=== PATIENT | male | born 1980 | race African-American/Black ===

== ENCOUNTER 2023-06-04 08:41 | Outpatient (AMB) | payer OTHER, SELFPAY ==
[2023-06-04 08:52] VITALS: BP 152/102; PULSE 56; O2SAT 98; BMI 27.2
--- NOTE | 2023-06-04 08:52 | A.OFFPC_ITS ---
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 Transferring care from [facility] in [place]. Medical records have been requested today. 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 Accompanied by: Self / Same As Patient Allergies No Known Allergies Allergy (Verified 06/04/23 09:06) Medication List - Last Reconciled 06/04/23 by Zara Denton MD amlodipine 5 mg PO DAILY Tobacco use date assessed: 06/04/23 Dental Screening Dental Screen Date: 06/04/23 Did you have a dental visit in the last 12 months?: Yes Did you have a dental problem in the last 6 months where you did not have access to dental care?: No Was dental information given to patient?: Patient has dentist HPI HPI Comments History of Present Illness Details This is a 42-year-old male with stage I hypertension that comes to establish care. He said he had ambulatory blood pressure monitoring for a week and he has elevated blood pressure was at nighttime therefore amlodipine is taking at bedtime. He denies any chest pain or shortness of breath. Still has elevated blood pressure and will be recheck in 3 weeks by nurse navigator. Workup to rule out thyroid disease, pheochromocytoma, hyperaldosteronism and obstructive sleep apnea were ordered. 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 He is a former smoker and CBC was ordered to rule out polycythemia vera as a cause high blood pressure. He denies any headaches, confusion or palpitations. Feels fatigue occasionally. No chest pain or shortness of breath. Ibuprofen in the past cause decreasing GFR. [facility] Medical History (Updated 06/04/23 @ 09:21 by Zara Denton MD) Umbilical hernia Surgical History S/P umbilical hernia repair, follow-up exam Family History Mother Type II diabetes mellitus Rheumatoid arteritis Hypertension Father Type II diabetes mellitus History of open heart surgery Hypertension Social History (Updated 06/04/23 @ 09:11 by Zara Denton MD) Housing: Apartment Alcohol intake: former Patient Tobacco Use Status: Former Tobacco user Tobacco use type: Cigarette e-Cigarette/Vaping Use: Never Used service: No Current occupational status: employed Cognitive needs: No Hearing needs: No Vision needs: No Questionnaire PHQ-9 Over the last 2 weeks, how often have you been bothered by any of the following problems? 1. Little interest or pleasure in doing things: not at all 2. Feeling down, depressed, or hopeless: not at all 3. Trouble falling or staying asleep, or sleeping too much: not at all 4. Feeling tired or having little energy: not at all 5. Poor appetite or overeating: not at all 6. Feeling bad about yourself - or that you are a failure or have let yourself or your family down: not at all 7. Trouble concentrating on things, such as reading the newspaper or watching television: not at all 8. Moving or speaking so slowly that other people could have noticed. Or the opposite - being so fidgety or restless that you have been moving around a lot more than usual: not at all 9. Thoughts that you would be better off or of hurting yourself in some way: not at all Total score: 0 Depression Screening Interpretation: Negative 79788 - PHQ-9 Billing: Yes Source: Developed by Drs. Usman Carcamo, Ruma Saavedra, Billy Mustafa and colleagues, with an educational gerri from [employer]. Thrive Questionnaire Date Thrive assessed: 06/04/23 I am a: Patient What is your living situation today?: I have a steady place to live Within the past 12 months, did the food you bought not last and you didn't have the money to get more?: Never true Within the past 12 months, did you worry whether your food would run out before you got money to buy more?: Never true Do you have trouble paying for medicines?: No Do you have trouble getting transportation to medical appointments?: No Do you have trouble paying your heating and electricity bill?: No Do you have trouble taking care of your child, family member or friend?: No Do you have trouble with day-to-day activities such as bathing, preparing meals, shopping, managing finances, etc.?: No Are you currently unemployed and looking for a job?: No Are you interested in more education?: No Please select the resources that you would like help with: None Currently or been in a relationship where the following occur: no concerns reported AUDIT C Alcohol Use Questionnaire (AUDIT-C) 1. How often do you have a drink containing alcohol?: Never 3. How often do you have six or more drinks on one occasion?: Never Total Score: 0 Score Reviewed/Action Taken: No KRAIG-7 AMB Questionnaire KRAIG-7 Date KRAIG - 7 assessed: 06/04/23 Feeling nervous, anxious, or on edge: 0 = Not at all Not being able to stop or control worryin = Not at all Worrying too much about different things: 0 = Not at all Trouble relaxin = Not at all Being so restless that it is hard to sit still: 0 = Not at all Becoming easily annoyed or irritable: 0 = Not at all Feeling afraid as if something awful might happen: 0 = Not at all Total KRAIG-7 score (0-4 normal; 5-9 mild; 10-14 moderate; 15-21 severe): 0 Source: Developed by Drs. Usman Carcamo, Ruma Saavedra, Billy Mustafa and colleagues, with an educational gerri from [employer]. KRAIG-7 Assessment Billing KRAIG-7 Assessment Tool: KRAIG-7 Assessment 00174 Review of Systems Const All systems reviewed & are unremarkable except as noted in HPI and below Eyes Reports no additional complaints, Denies change in vision and Denies other visual disturbances Card Denies chest pain at rest, Denies chest pain with activity, Denies edema, Denies irregular heart rhythm, Denies claudication, Denies dyspnea, Denies dyspnea on exertion, Denies orthopnea, Denies paroxysmal nocturnal dyspnea and Denies slow heart rate Resp Denies cough, Denies dyspnea and Denies dyspnea on exertion GI Denies abdominal pain, Denies change in bowel habits, Denies excessive flatus, Denies nausea and Denies vomiting Denies urinary hesitancy, Denies urinary incontinence and Denies urinary urgency Musc Denies abnormal gait, Denies atrophy, Denies deformity and Denies limited range of motion Skin/Breast Denies bleeding lesions, Denies changing lesions and Denies rash Neuro Denies abnormal gait and Denies lack of coordination Physical exam (Primary Care) Vital Signs: Last Vital Signs Pulse 56 06/04/23 08:52 BP 152/102 H 06/04/23 08:52 Pulse Ox 98 06/04/23 08:52 Oxygen Delivery Method Room Air 06/04/23 08:52 BMI result Body Mass Index 27.2 Tobacco/Smoking Status: Tobacco use Status Tobacco use date assessed 06/04/23 06/04/23 09:03 Patient Tobacco Use Status Former Tobacco user 06/04/23 09:03 Tobacco use type Cigarette 06/04/23 09:03 e-Cigarette/Vaping Use Never Used 06/04/23 09:03 PHQ-9: PHQ-9 Score PHQ-9: Total score 0 06/04/23 09:03 Depression Screening Interpretation: Negative Thrive Assessment: Date of Thrive Assessment Date Thrive assessed 06/04/23 06/04/23 09:03 Currently or been in a relationship where the following occur: no concerns reported Eyes General: appearance normal, both eyes and all related structures Eyelids: Yes eyelids normal Conjunctivae: conjunctivae normal Neck Neck: Yes normal visual inspection and Yes supple Resp Effort & Inspection: normal respiratory effort Auscultation: clear to auscultation bilaterally Cardio Jugular venous distension: no JVD Rate: regular rate Rhythm: regular rhythm Heart sounds: S1 normal heart sound present and S2 normal heart sound present Extrem General: Yes full ROM Assessment and Plan Assessment & Plan (1) Uncontrolled hypertension: Code(s): I10 - Essential (primary) hypertension Plan: Continue amlodipine. Recheck blood pressure with nurse navigator in 3 weeks. Labs ordered to rule out secondary causes of hypertension. (2) Daytime sleepiness: Code(s): R40.0 - Somnolence Plan: Sleep study ordered Orders: Orders Catecholamines, Frac., 24Ur Today I10 - Essential (primary) hypertension Comprehensive [place]. Panel Fast Today I10 - Essential (primary) hypertension Lipid Panel Today E78.5 - Hyperlipidemia, unspecified, I10 - Essential (primary) hypertension Metanephrines, Plasma Today I10 - Essential (primary) hypertension Thyroid Stimulating Hormone Today R53.83 - Other fatigue Metanephrines, 24hr Urine Today I10 - Essential (primary) hypertension Complete Blood Count Auto Diff Today R53.83 - Other fatigue Aldost/Renin Today I10 - Essential (primary) hypertension RT home sleep study Today R40.0 - Somnolence Coding Level of Care Code New Pt Level 3 (01699) Diagnoses Uncontrolled hypertension I10 Daytime sleepiness R40.0 Additional Codes KRAIG-7 Assessment Billing - KRAIG-7 Assessment Tool: KRAIG-7 Assessment 78758 ([id number]) Time Spent (min) 19
[2023-06-04 09:24] VITALS: BP 150/100
== END 2023-06-04 09:29 | disposition home or self-care (01) ==
PROVIDERS: Visit Provider Internal Medicine
DX: I10 Essential (primary) hypertension (principal); R40.0 Somnolence
CPT/HCPCS: 99203

== ENCOUNTER 2023-06-04 09:54 | Outpatient (REF) | payer OTHER, SELFPAY ==
[2023-06-04 10:21] LABS: MANUAL DIFF FLAG NO
[2023-06-04 10:22] LABS: Basophils Percent Auto 0.5 % (0-2); Eosinophils Absolute Auto 0.2 X10*3/uL (0.0-0.4); Eosinophils Percent Auto 2.6 % (0-4); Hematocrit 49.2 % (42.0-52.0); Hemoglobin 16.1 g/dl (14.0-18.0); Imm Gran Abs Auto 0.02 X10*3/uL (0.00-0.03); Imm Gran Pct Auto 0.3 % (0.0-0.4); Lymphocytes Absolute Auto 1.7 X10*3/uL (1.2-4.9); Lymphocytes Percent Auto 29.4 % (20-40); Mean Corpuscular HGB Conc 32.7 g/dl (31.0-36.0); Mean Corpuscular Hemoglobin 26.1 pg (27.0-33.0); Mean Corpuscular Volume 79.7 fL (80.0-98.0); Mean Platelet Volume 10.1 fL (9.4-12.4); Monocytes Absolute Auto 0.5 X10*3/uL (0.1-1.2); Monocytes Percent Auto 9.1 % (2-11); Neutrophils Absolute Auto 3.4 x10*3/uL (2.0-8.3); Neutrophils Percent Auto 58.1 % (45-73); Platelet Count 248 X10*3/uL (160-400); Red Blood Count 6.17 X10*6/uL (4.60-5.80); Red Cell Distribution Width 13.7 % (11.0-16.0); White Blood Count 5.9 X10*3/uL (4.8-10.8)
[2023-06-04 10:49] LABS: Alanine Aminotransferase 18 U/L (0-40); Albumin Level 4.6 g/dL (3.5-5.0); Alkaline Phosphatase 55 U/L (39-117); Anion Gap 10 (12-20); Aspartate Amino Transferase 18 U/L (5-37); Bilirubin Total 0.6 mg/dL (0.0-1.0); Blood Urea Nitrogen 9 mg/dL (9-16); Calcium 10.6 mg/dL (8.4-10.2); Carbon Dioxide 28 mmol/L (22-29); Chloride 108 mmol/L (96-108); Cholesterol 187 mg/dL; Estimated Glomerular Filt Rate > 60; Glucose Fasting 91 mg/dL (60-99); HDL Cholesterol 52 mg/dL; LDL Cholesterol Calculated 116 mg/dl; Potassium 4.7 mmol/L (3.3-5.1); Sodium 141 mmol/L (135-145); Total Protein 7.9 g/dL (6.5-8.0); Triglycerides 95 mg/dL
[2023-06-09 17:14] LABS: Metanephrine, Free 49 pg/mL (<=57); Normetanephrines, Free 94 pg/mL (<=148); Total Metanephrine, Free 143 pg/mL (<=205)
[2023-06-10 15:39] LABS: Aldosterone/Renin Ratio 33.3 Ratio (0.9-28.9); Plasma Renin Activity 0.21 ng/mL/h (0.25-5.82)
== END 2023-06-04 09:55 | disposition home or self-care (01) ==
LOC: HO.LAB 09:54
PROVIDERS: PCP Internal Medicine; Visit Provider Internal Medicine
DX: R53.83 Other fatigue (principal); E78.5 Hyperlipidemia, unspecified; I10 Essential (primary) hypertension
CPT/HCPCS: 36415; 80053; 80061; 82088; 83835; 84443; 85025

== ENCOUNTER 2023-06-09 07:49 | Outpatient (REF) | payer OTHER, SELFPAY ==
[2023-06-14 23:09] LABS: Metanephrine, Free 24U 70 mcg/24 h (58-203); Normetanephrine, Free 24U 116 mcg/24 h (88-649); Total Metanephrine, Free 24U 186 mcg/24 h (182-739); Total Volume 24U 900 mL
[2023-06-16 02:33] LABS: CATF, 24 Ur Volume 900 mL; CATF-24Ur Creatinine 0.95 g/24 h (0.50-2.15); Catecholamines,Tot. (E+NE) 24U 8 mcg/24 h (26-121); Dopamine, 24 Ur 216 mcg/24 h (52-480); Norepinephrine, 24 Ur 8 mcg/24 h (15-100)
== END 2023-06-09 07:50 | disposition home or self-care (01) ==
LOC: HO.LNP 07:49
PROVIDERS: Visit Provider Internal Medicine
DX: I10 Essential (primary) hypertension (principal)
CPT/HCPCS: 82384; 83835

== ENCOUNTER 2023-07-24 07:20 | Outpatient (REF) | payer OTHER, SELFPAY ==
[2023-07-24] MEDS: iohexoL 350 MG/ML 75 ML INFUS..BTL 85 ML IV (08:35)
== END 2023-07-24 07:21 | disposition home or self-care (01) ==
LOC: HO.CT 07:20
PROVIDERS: PCP Internal Medicine; Visit Provider Internal Medicine
DX: E26.9 Hyperaldosteronism, unspecified (principal); I10 Essential (primary) hypertension
CPT/HCPCS: 74178; Q9967

== ENCOUNTER → 2023-08-26 14:33 | Outpatient (REF) | payer OTHER, SELFPAY | LOC: HO.SL 14:33 | PROVIDERS: PCP Internal Medicine; Visit Provider Internal Medicine | DX: R40.0 Somnolence (principal); R06.83 Snoring | CPT/HCPCS: 95806 ==

== ENCOUNTER → 2023-08-26 14:40 | Outpatient (BNV) | payer OTHER, SELFPAY | PROVIDERS: PCP Internal Medicine; Visit Provider Internal Medicine | DX: R06.83 Snoring (principal); R40.0 Somnolence | CPT/HCPCS: 95806 ==

== ENCOUNTER 2023-09-12 12:42 | Outpatient (REF) | payer OTHER, SELFPAY ==
--- NOTE | ~2023-09-12 | MR_ITS ---
EXAMINATION: MRI ABDOMEN WITH AND WITHOUT CONTRAST CLINICAL INFORMATION: E27.8 - Other specified disorders of adrenal gland COMPARISON: 07/24/2023 CT scan TECHNIQUE: Multiple routine MRI sequences through the abdomen were obtained on a high-field 1.5Tesla MRI. Pre-and postcontrast images with 9 mL of Gadavist intravenous contrast were obtained. This included a dynamic contrast-enhanced technique. FINDINGS: Lung bases: The visualized lung bases are unremarkable. Liver: The liver is normal in size, shape, and signal. No suspicious focal hepatic lesions seen. Specifically no suspicious arterial phase enhancing lesions or suspicious washout of contrast on later phases. No biliary ductal dilatation. Gallbladder: Gallbladder is partially contracted but otherwise unremarkable. No suspicious gallstones or filling defects. No gallbladder wall thickening or pericholecystic inflammatory changes. Pancreas: Pancreas is homogeneous in signal. No pancreatic ductal dilatation or obstruction. No peripancreatic inflammatory changes or fluid. Spleen: Unremarkable Adrenals: Slight fullness to the left adrenal gland but no discrete nodularity, abnormal enhancement, or significant signal dropout on the out of phase imaging. Kidneys: Kidneys are normal in size, shape, and signal. No suspicious renal mass lesion seen. No hydronephrosis or perinephric edema. Other: No bulky adenopathy MR/MR abdomen wo/w con IMPRESSION: Slight fullness to the left adrenal gland but no discrete nodularity, abnormal enhancement, or significant signal dropout on the out of phase imaging. Overall no abnormality seen.
[2023-09-12] MEDS: gadobutroL 10 ML VIAL IVPUSH (13:38)
== END 2023-09-12 12:43 | disposition home or self-care (01) ==
LOC: HO.MRI 12:42
PROVIDERS: PCP Internal Medicine; Visit Provider Internal Medicine
DX: E27.8 Other specified disorders of adrenal gland (principal)
CPT/HCPCS: 74183; A9585

== ENCOUNTER 2023-10-30 14:40 | Outpatient (AMB) | payer BC, SELFPAY ==
[2023-10-30 14:43] VITALS: BP 132/80; BMI 27.8
--- NOTE | 2023-10-30 14:43 | A.OFFPC_ITS ---
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 Accompanied by: Self / Same As Patient Allergies No Known Allergies Allergy (Verified 10/30/23 15:01) Medication List - Last Reconciled 10/30/23 by Zara Denton MD amlodipine 5 mg PO DAILY Tobacco use date assessed: 10/30/23 Dental Screening Dental Screen Date: 10/30/23 Did you have a dental visit in the last 12 months?: Yes Did you have a dental problem in the last 6 months where you did not have access to dental care?: No Was dental information given to patient?: Patient has dentist HPI HPI Comments History of Present Illness Details This is a 43-year-old male that comes for his physical exam. Last colonoscopy was 2018 which was normal and has family history of colon cancer in father. No chest pain or shortness of breath. Blood pressure control. Sleep study and CT of abdomen and pelvis was discussed as well as labs. Complains of left shoulder and right hip pain that has been present for a while and would like to see Ortho. [facility] Medical History (Updated 10/30/23 @ 15:26 by Zara Denton MD) Adrenal nodule Aldosteronism Uncontrolled hypertension Umbilical hernia Surgical History S/P umbilical hernia repair, follow-up exam Family History Mother Type II diabetes mellitus Rheumatoid arteritis Hypertension Father Type II diabetes mellitus History of open heart surgery Hypertension Social History Housing: Apartment Alcohol intake: former Patient Tobacco Use Status: Former Tobacco user Tobacco use type: Cigarette e-Cigarette/Vaping Use: Never Used service: No Current occupational status: employed Current occupational exposures/hazards: No Cognitive needs: No Hearing needs: No Vision needs: No Questionnaire PHQ-9 Over the last 2 weeks, how often have you been bothered by any of the following problems? 1. Little interest or pleasure in doing things: not at all 2. Feeling down, depressed, or hopeless: not at all 3. Trouble falling or staying asleep, or sleeping too much: not at all 4. Feeling tired or having little energy: not at all 5. Poor appetite or overeating: not at all 6. Feeling bad about yourself - or that you are a failure or have let yourself or your family down: not at all 7. Trouble concentrating on things, such as reading the newspaper or watching television: not at all 8. Moving or speaking so slowly that other people could have noticed. Or the opposite - being so fidgety or restless that you have been moving around a lot more than usual: not at all 9. Thoughts that you would be better off or of hurting yourself in some way: not at all Total score: 0 Depression Screening Interpretation: Negative Depression Screening Done: Yes 80719 - PHQ-9 Billing: Yes Source: Developed by Drs. Usman Carcamo, Ruma Saavedra, Billy Mustafa and colleagues, with an educational gerri from [employer]. Thrive Questionnaire Date Thrive assessed: 10/30/23 I am a: Patient What is your living situation today?: I have a steady place to live Within the past 12 months, did the food you bought not last and you didn't have the money to get more?: Never true Within the past 12 months, did you worry whether your food would run out before you got money to buy more?: Never true Do you have trouble paying for medicines?: No Do you have trouble getting transportation to medical appointments?: No Do you have trouble paying your heating and electricity bill?: No Do you have trouble taking care of your child, family member or friend?: No Do you have trouble with day-to-day activities such as bathing, preparing meals, shopping, managing finances, etc.?: No Are you currently unemployed and looking for a job?: No Are you interested in more education?: No Please select the resources that you would like help with: None Currently or been in a relationship where the following occur: no concerns reported AUDIT C Alcohol Use Questionnaire (AUDIT-C) 1. How often do you have a drink containing alcohol?: Never Total Score: 0 KRAIG-7 AMB Questionnaire KRAIG-7 Date KRAIG - 7 assessed: 10/30/23 Feeling nervous, anxious, or on edge: 0 = Not at all Not being able to stop or control worryin = Not at all Worrying too much about different things: 0 = Not at all Trouble relaxin = Not at all Being so restless that it is hard to sit still: 0 = Not at all Becoming easily annoyed or irritable: 0 = Not at all Feeling afraid as if something awful might happen: 0 = Not at all Total KRAIG-7 score (0-4 normal; 5-9 mild; 10-14 moderate; 15-21 severe): 0 Source: Developed by Drs. Usman Carcamo, Ruma Saavedra, Billy Mustafa and colleagues, with an educational gerri from [employer]. KRAIG-7 Assessment Billing KRAIG-7 Assessment Tool: KRAIG-7 Assessment 46844 Review of Systems Const All systems reviewed & are unremarkable except as noted in HPI and below Eyes Reports no additional complaints, Denies change in vision and Denies other visual disturbances Card Denies chest pain at rest, Denies chest pain with activity, Denies edema, Denies irregular heart rhythm, Denies claudication, Denies dyspnea, Denies dyspnea on exertion, Denies orthopnea, Denies paroxysmal nocturnal dyspnea and Denies slow heart rate Resp Denies cough, Denies dyspnea and Denies dyspnea on exertion GI Denies abdominal pain, Denies change in bowel habits, Denies excessive flatus, Denies nausea and Denies vomiting Denies urinary hesitancy, Denies urinary incontinence and Denies urinary urgency Musc Denies abnormal gait, Denies atrophy, Denies deformity, Reports arthralgias and Denies limited range of motion Skin/Breast Denies bleeding lesions, Denies changing lesions and Denies rash Neuro Denies abnormal gait, Denies behavioral changes, Denies confusion and Denies lack of coordination Psych Denies behavioral changes and Denies confusion Physical exam (Primary Care) Vital Signs: Last Vital Signs BP 132/80 10/30/23 14:43 BMI result Body Mass Index 27.8 Tobacco/Smoking Status: Tobacco use Status Tobacco use date assessed 10/30/23 10/30/23 14:53 Patient Tobacco Use Status Former Tobacco user 10/30/23 14:53 Tobacco use type Cigarette 10/30/23 14:53 e-Cigarette/Vaping Use Never Used 10/30/23 14:53 PHQ-9: PHQ-9 Score PHQ-9: Total score 0 10/30/23 15:06 Depression Screening Interpretation: Negative Thrive Assessment: Date of Thrive Assessment Date Thrive assessed 10/30/23 10/30/23 14:53 Currently or been in a relationship where the following occur: no concerns reported Const General: No confusion Orientation/consciousness: patient oriented x3 and No confusion HENMT Head: Yes normal to inspection, Yes normocephalic and Yes atraumatic Ears: external ears normal Eyes General: appearance normal, both eyes and all related structures Eyelids: Yes eyelids normal Conjunctivae: conjunctivae normal Neck Neck: Yes normal visual inspection and Yes supple Resp Effort & Inspection: normal respiratory effort Auscultation: clear to auscultation bilaterally Cardio Jugular venous distension: no JVD Rate: regular rate Rhythm: regular rhythm Heart sounds: S1 normal heart sound present and S2 normal heart sound present GI Inspection: Yes normal to inspection Palpation (GI): Soft to palpation and nontender Auscultation: normal bowel sounds Skin General skin exam: no rashes or lesions noted Neuro General: patient oriented x3, no focal motor deficits and No confusion Extrem General: Yes full ROM Psych Appearance: grossly normal Office Procedures Flu Questionnaire Does the patient have a severe egg allergy?: No Does the patient have severe life threatening allergies?: No Does the patient have a fever or illness today?: No Has the patient ever had Guillain-Casa Syndrome?: No Has the patient ever had any past reaction to a flu shot?: No Immunizations flu vacc [id number] 6mos up(PF) 60 mcg(15 mcgx4)/0.5 mL IM syringe Performing Provider: Zara Denton MD Performing Location: [facility] Administered by: JAHAIRA Patrick on 10/30/23 15:18 Dose Route Admin Location Dispensed Lot Number Expiration Date NDC 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 Orders: Orders Influenza [id number] Immunization Today Z23 - Encounter for immunization XR shoulder LT min 2V Today M25.512 - Pain in left shoulder XR hip RT min 2V Today M25.551 - Pain in right hip Referrals Orthopedics Referral M25.512 - Pain in left shoulder, M25.551 - Pain in right hip Gastroenterology Referral Z80.0 - Family history of malignant neoplasm of digestive organs Coding Level of Care Code Est Pt Prev Care 40-64y(62708) Diagnoses Physical exam Z00.00 Additional Codes KRAIG-7 Assessment Billing - KRAIG-7 Assessment Tool: KRAIG-7 Assessment 64122 ([id number]) Time Spent (min) 32
== END 2023-10-30 15:17 | disposition home or self-care (01) ==
PROVIDERS: PCP Internal Medicine; Visit Provider Internal Medicine
DX: Z00.00 Encounter for general adult medical examination without abnormal findings (principal); Z23 Encounter for immunization
CPT/HCPCS: 90471; 90686; 99396

== ENCOUNTER 2023-11-05 15:44 | Outpatient (REF) | payer BC, SELFPAY ==
--- NOTE | ~2023-11-05 | XR_ITS ---
EXAMINATION: XR HIP, RIGHT CLINICAL INFORMATION: Pain in right hip COMPARISON: None available. TECHNIQUE: Two views of the right hip. FINDINGS: No fracture. Alignment is anatomic. Hip joint space is maintained. Soft tissues are unremarkable. There is mild sclerosis about the iliac and sacral side of the right SI joint. The symphysis pubis is normal. XR/XR hip RT min 2V IMPRESSION: 1. Normal right hip. 2. Mild sclerosis about the iliac and sacral side of the right SI joint. The SI joint is widely patent.
--- NOTE | ~2023-11-05 | XR_ITS ---
EXAMINATION: XR SHOULDER, LEFT CLINICAL INFORMATION: Pain in left shoulder COMPARISON: None available. TECHNIQUE: AP external rotation, Grashey, scapular Y, and axillary views of the left shoulder. FINDINGS: The bones are intact. There is a small ossific or calcific density adjacent to the superior aspect of the glenoid which could be related to a labral tear. Glenohumeral and acromioclavicular alignment is anatomic with normal joint space. No abnormal soft tissue calcifications. XR/XR shoulder LT min 2V IMPRESSION: Small ossific or calcific density adjacent to the superior aspect of the glenoid which could be related to a labral tear. MRI scan could be obtained for further evaluation.
== END 2023-11-05 15:45 | disposition home or self-care (01) ==
LOC: HO.HMGCX 15:44
PROVIDERS: PCP Internal Medicine; Visit Provider Internal Medicine
DX: M25.512 Pain in left shoulder (principal); M25.551 Pain in right hip
CPT/HCPCS: 73030; 73502

== ENCOUNTER 2023-12-31 15:14 | Outpatient (AMB) | payer BC, SELFPAY ==
[2023-12-31 15:18] VITALS: BP 150/79; PULSE 67; BMI 28.3
--- NOTE | 2023-12-31 15:18 | MHC.OFFVIS ---
Intake Vital Signs 12/31/23 15:18 Height 5 ft 10 in Weight 197 lb 1.492 oz BMI 28.3 BP 150/79 H Blood Pressure Location Rt brachial Position Sitting Pulse 67 Pulse Source Pulse Oximeter Intake Visit Reasons: malignant neoplasm of digestive organs Intake Note: Pt presents to the office today for a colonscopy screening due to a family history of polyps. Pt states his dad has polyps. He states his last colonoscopy was in 2019. Pt denies any GI concerns at this time. Allergies No Known Allergies Allergy (Verified 12/31/23 15:19) HPI malignant neoplasm of digestive organs HPI Details 43-year-old male here for preprocedural meeting to discuss a screening colonoscopy in the context of a family history of colon cancer. He is referred by Zara Lucero of [facility] primary care. PMX Hypertension Overweight Shoulder and hip pain Umbilical hernia Adrenal nodule * SURGICAL HISTORY Umbilical hernia repair * ALLERGIES: NKDA * Jacked LABS: Laboratory Tests 06/04/23 10:18 WBC 5.9 Hgb 16.1 Hct 49.2 Plt Count 248 Estimated GFR > 60 Total Bilirubin 0.6 AST 18 ALT 18 Alkaline Phosphata se 55 TSH 1.10 TODAY'S VISIT [place] #Aracelis Salazar He had a prior scope at [facility] and although I can not see the actual procedure note, there is no pathology so I assume he had no polyps. The patient confirms this. His father did not have colon cancer only tubular adenomas that occurred around age 60 or later. With this information he really never needed a colonoscopy prior to age 47 any certainly does not need 1 at this time especially in light of the negative prior colonoscopy. I will be happy to see him back in 3-4 years' time in a put him on a recall list. COUNTS INCLUDE 234 BEDS AT THE [facility] Medical History (Updated 12/31/23 @ 15:50 by ODALIS Eddy) Adrenal nodule Aldosteronism Uncontrolled hypertension Umbilical hernia Surgical History (Updated 12/31/23 @ 15:50 by ODALIS Eddy) H/O colonoscopy S/P umbilical hernia repair, follow-up exam Family History (Updated 12/31/23 @ 15:22 by Leny Cox MA) Mother Type II diabetes mellitus Rheumatoid arteritis Hypertension Father Type II diabetes mellitus History of open heart surgery Hypertension History of colon polyps Social History Housing: Apartment Alcohol intake: former Patient Tobacco Use Status: Former Tobacco user Tobacco use type: Cigarette e-Cigarette/Vaping Use: Never Used service: No Current occupational status: employed Current occupational exposures/hazards: No Cognitive needs: No Hearing needs: No Vision needs: No Review of Systems Const Denies fatigue, Denies fever(s), Denies night sweats, Denies poor appetite and Denies weight loss ENT Reports Normal hearing present, Denies dental pain, Denies dysphagia, Denies hearing loss, Denies mouth pain, Denies odynophagia, Denies throat swelling, Denies tongue swelling and Reports other (Dentition adequate) Card Reports no additional complaints Resp Reports no additional complaints GI Details: Denies abdominal pain, Denies melena, Denies bloating, Denies hematochezia, Denies constipation, Denies GI cramping, Denies dysphagia, Denies excessive flatus, Denies early satiety, Denies heartburn, Denies diarrhea, Denies nausea, Denies odynophagia, Denies vomiting and Denies hematemesis Skin/Breast Denies pruritus, Denies lesions, Denies rash and Denies jaundice Neuro Reports Normal hearing present and Denies Abnormal speech present Endo Denies fatigue Aller/Immun Denies throat swelling and Denies tongue swelling Physical Exam Vital Signs: Last Vital Signs Pulse 67 12/31/23 15:18 BP 150/79 H 12/31/23 15:18 BMI result Body Mass Index 28.3 Const General: cooperative, no acute distress, well developed and well groomed Nutritional Appearance: average body habitus and well nourished Orientation/consciousness: oriented to person, oriented to place and oriented to time Limitations: language barrier HEENT Head: Yes normocephalic and Yes atraumatic Eyes General: appearance normal, both eyes and all related structures Pupils: Equal, round and reactive pupils present Neck Neck: Yes normal visual inspection Resp Effort & Inspection: normal respiratory effort and able to speak in complete sentences Neuro General: oriented to person, oriented to place and oriented to time Cranial nerves: Yes Equal, round and reactive pupils present and Yes Normal hearing present Speech: No Abnormal speech present Psych Appearance: grossly normal and well kempt Mental Status: mental status grossly normal Speech and movement: Normal speech and movement present Affect: normal affect Attitude: cooperative Thought process: Normal thought process present and not confabulating Thought content: Normal thought content present Insight: Limited insight present (Psych) Judgement: Limited judgement present (Psych) Assessment & Plan Assessment & Plan (1) Family history of polyps in the colon: Comment: Father had precancerous polyps in his 60s Code(s): Z83.719 - Family history of colon polyps, unspecified (2) Pre-op examination: Code(s): Z01.818 - Encounter for other preprocedural examination Plan [place] #Aracelis LIve He had a prior scope at [facility] and although I can not see the actual procedure note, there is no pathology so I assume he had no polyps. The patient confirms this. His father did not have colon cancer only tubular adenomas that occurred around age 60 or later. With this information he really never needed a colonoscopy prior to age 47 any certainly does not need 1 at this time especially in light of the negative prior colonoscopy. I will be happy to see him back in 3-4 years' time in a put him on a recall list. Coding Level of Care Code New Pt Level 3 (57865) Diagnoses Family history of polyps in the colon Z83.719 Pre-op examination Z01.818
== END 2023-12-31 15:45 | disposition home or self-care (01) ==
PROVIDERS: PCP Internal Medicine; Visit Provider Nurse Practitioner
DX: Z83.719 Family history of colon polyps, unspecified (principal); Z01.818 Encounter for other preprocedural examination
CPT/HCPCS: 99203

== ENCOUNTER → 2023-12-31 15:14 | Outpatient (BNVA) | payer BC, SELFPAY | PROVIDERS: PCP Internal Medicine; Visit Provider Nurse Practitioner ==

== ENCOUNTER 2024-11-02 15:37 | Outpatient (AMB) | payer BC, SELFPAY ==
--- NOTE | 2024-11-02 16:03 | MHC.PC.OV ---
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 Feeder Language: Commercial Baking Teacher Name: Zara Denton MD Information Interpreted: non-clinical & clinical Accompanied by: Self / Same As Patient Allergies No Known Allergies Allergy (Verified 11/02/24 16:28) Medication List - Last Reconciled 11/02/24 by Zara Denton MD amlodipine 5 mg PO DAILY Tobacco use date assessed: 11/02/24 Dental Screening Dental Screen Date: 11/02/24 Did you have a dental visit in the last 12 months?: Yes Did you have a dental problem in the last 6 months where you did not have access to dental care?: No Was dental information given to patient?: Patient has dentist HPI HPI Comments History of Present Illness Details The patient is a 44-year-old male presenting for his physical exam. He has a palpable lump. The patient noticed a small dot a while ago, which has now developed into a lump that can be felt upon touch. The patient describes it as feeling like a cool mass. There is a concern for potential surgery, and a referral to a hand surgeon is being considered. The patient is currently on Amlodipine 5 mg for hypertension and has a history of surgical repair of an umbilical hernia. The patient's family history includes a mother with rheumatoid arthritis. He previously smoked and consumed alcohol but has since ceased both activities. There is no report of fever, cough, or other acute systemic symptoms. - Referral to a hand surgeon for further evaluation and possible management of the palpable lump. - Discussion of managing hypertension with current medication (Amlodipine 5 mg). - Discussion regarding vaccination against influenza as there is mention of a flu shot. [facility] Medical History (Updated 11/02/24 @ 16:35 by Zara Denton MD) Adrenal nodule Aldosteronism Uncontrolled hypertension Umbilical hernia Surgical History H/O colonoscopy S/P umbilical hernia repair, follow-up exam Family History Mother Type II diabetes mellitus Rheumatoid arteritis Hypertension Father Type II diabetes mellitus History of open heart surgery Hypertension History of colon polyps Social History Housing: Apartment Alcohol intake: former Patient Tobacco Use Status: Former Tobacco user Tobacco use type: Cigarette e-Cigarette/Vaping Use: Never Used Second Hand Smoke Exposure: No service: No Current occupational status: employed Current occupational exposures/hazards: No Cognitive needs: No Hearing needs: No Vision needs: No Questionnaire PHQ-9 Over the last 2 weeks, how often have you been bothered by any of the following problems? 1. Little interest or pleasure in doing things: not at all 2. Feeling down, depressed, or hopeless: not at all 3. Trouble falling or staying asleep, or sleeping too much: not at all 4. Feeling tired or having little energy: several days 5. Poor appetite or overeating: several days 6. Feeling bad about yourself - or that you are a failure or have let yourself or your family down: not at all 7. Trouble concentrating on things, such as reading the newspaper or watching television: not at all 8. Moving or speaking so slowly that other people could have noticed. Or the opposite - being so fidgety or restless that you have been moving around a lot more than usual: not at all 9. Thoughts that you would be better off or of hurting yourself in some way: not at all Total score: 2 Depression Screening Interpretation: Negative Depression Screening Done: Yes 27589 - PHQ-9 Billing: Yes Source: Developed by Drs. Usman Carcamo, Ruma Saavedra, Billy Mustafa and colleagues, with an educational gerri from [employer]. Thrive Questionnaire Date Thrive assessed: 11/02/24 I am a: Patient What is your living situation today?: I have a steady place to live Within the past 12 months, did the food you bought not last and you didn't have the money to get more?: Never true Within the past 12 months, did you worry whether your food would run out before you got money to buy more?: Never true Do you have trouble paying for medicines?: No Do you have trouble getting transportation to medical appointments?: No Do you have trouble paying your heating and electricity bill?: No Do you have trouble taking care of your child, family member or friend?: No Do you have trouble with day-to-day activities such as bathing, preparing meals, shopping, managing finances, etc.?: No Are you currently unemployed and looking for a job?: No Are you interested in more education?: Yes Please select the resources that you would like help with: None Currently or been in a relationship where the following occur: I choose not to answer THRIVE Score: 0 AUDIT C Alcohol Use Questionnaire (AUDIT-C) 1. How often do you have a drink containing alcohol?: Never Total Score: 0 Score Reviewed/Action Taken: No KRAIG-7 AMB Questionnaire KRAIG-7 Date KRAIG - 7 assessed: 11/02/24 Feeling nervous, anxious, or on edge: 0 = Not at all Not being able to stop or control worryin = Not at all Worrying too much about different things: 1 = Several days Trouble relaxin = Several days Being so restless that it is hard to sit still: 1 = Several days Becoming easily annoyed or irritable: 1 = Several days Feeling afraid as if something awful might happen: 1 = Several days Total KRAIG-7 score (0-4 normal; 5-9 mild; 10-14 moderate; 15-21 severe): 5 Source: Developed by Drs. Usman Carcamo, Ruma Saavedra, Billy Mustafa and colleagues, with an educational gerri from [employer]. KRAIG-7 Assessment Billing KRAIG-7 Assessment Tool: KRAIG-7 Assessment 36402 Review of Systems Const All systems reviewed & are unremarkable except as noted in HPI and below Card Denies chest pain at rest, Denies chest pain with activity, Denies edema, Denies irregular heart rhythm, Denies claudication, Denies dyspnea, Denies dyspnea on exertion, Denies orthopnea, Denies paroxysmal nocturnal dyspnea and Denies slow heart rate Resp Denies cough, Denies dyspnea and Denies dyspnea on exertion Physical exam (Primary Care) Vital Signs: Last Vital Signs BP 136/82 11/02/24 16:04 BMI result Body Mass Index 28.0 Tobacco/Smoking Status: Tobacco use Status Tobacco use date assessed 11/02/24 11/02/24 16:10 Patient Tobacco Use Status Former Tobacco user 11/02/24 16:10 Tobacco use type Cigarette 01/14/25 16:10 e-Cigarette/Vaping Use Never Used 11/02/24 16:10 PHQ-9: PHQ-9 Score PHQ-9: Total score 2 11/02/24 16:40 Depression Screening Interpretation: Negative Thrive Assessment: Date of Thrive Assessment Date Thrive assessed 11/02/24 11/02/24 16:10 Currently or been in a relationship where the following occur: I choose not to answer [facility] Head: Yes normal to inspection, Yes normocephalic and Yes atraumatic Ears: external ears normal Eyes General: appearance normal, both eyes and all related structures Eyelids: Yes eyelids normal Conjunctivae: conjunctivae normal Neck Neck: Yes normal visual inspection and Yes supple Resp Effort & Inspection: normal respiratory effort Auscultation: clear to auscultation bilaterally Cardio Jugular venous distension: no JVD Rate: regular rate Rhythm: regular rhythm Heart sounds: S1 normal heart sound present and S2 normal heart sound present GI Inspection: Yes normal to inspection Palpation (GI): Soft to palpation and nontender Auscultation: normal bowel sounds Skin General skin exam: no rashes or lesions noted Neuro General: no focal motor deficits Extrem General: Yes full ROM Psych Appearance: grossly normal Office Procedures Flu Questionnaire Does the patient have a severe egg allergy?: No Does the patient have severe life threatening allergies?: No Does the patient have a fever or illness today?: No Has the patient ever had Guillain-[place] Syndrome?: No Has the patient ever had any past reaction to a flu shot?: No Immunizations Fluarix Triv 5218-6616 (PF) 45 mcg (15 mcg x 3)/0.5 mL IM syringe Performing Provider: Zara Denton MD [facility] Administered by: JAHAIRA Patrick on 11/02/24 16:41 Dose Route Admin Location Dispensed Lot Number Expiration Date [facility] Poultry Barn Manager 0.5 mL IM Right Deltoid 0.5 mL [id number] 04/08/25 52590-117-30 [employer] VIS Given Date VIS Provided VIS Publication Date 11/02/24 Single Vaccine 21 Eligibility Eligibility Date Funding Source Not [facility] Eligible 11/02/24 Private Coding Level of Care Code Est Pt Level 3 (70787) Est Pt Prev Care 40-64y(01267) Diagnoses Physical exam Z00.00 Mass of right hand R22.31 Additional Codes KRAIG-7 Assessment Billing - KRAIG-7 Assessment Tool: KRAIG-7 Assessment 81570 ([id number]) PHQ-9 - 47119 - PHQ-9 Billing: Yes ([id number]) Time Spent (min) 35 Assessment & Plan Assessment & Plan (1) Physical exam: Code(s): Z00.00 - Encounter for general adult medical examination without abnormal findings Category: Medical (2) Mass of right hand: Code(s): R22.31 - Localized swelling, mass and lump, right upper limb Category: Medical Plan - Arrange imaging likely an X-ray) for the palpable lump and consider referral to a hand surgeon for evaluation and management. - Continue current antihypertensive therapy with Amlodipine 5 mg and monitor blood pressure regularly. Patient was informed and verbally consented to the use of an ambient scribe for clinic note documentation during this visit. I discussed with the patient the likelihood of needing further imaging and a potential surgical evaluation regarding the palpable lump, including referral to a hand surgeon. The risks, benefits, and alternatives of any potential procedure were mentioned. We talked about the importance of continuing antihypertensive management and monitoring. I explained the importance of receiving an influenza vaccine and ensured understanding. Orders: Orders Comprehensive [place]. Panel Fast Today Z00.00 - Encounter for general adult medical examination without abnormal findings Lipid Panel Today Z00.00 - Encounter for general adult medical examination without abnormal findings XR hand RT 2V Today R22.31 - Localized swelling, mass and lump, right upper limb Influenza [id number] Immunization Today Z23 - Encounter for immunization Referrals Orthopedics Referral R22.31 - Localized swelling, mass and lump, right upper limb Medications: New omeprazole 20 mg PO DAILY PRN 90 caps 2RF heartburn 90 days R10.13 - Epigastric pain Patient Instructions: - Continue Amlodipine 5 mg as prescribed. - Monitor for any changes in the lump and follow up with a hand surgeon as referred. - Consistently monitor blood pressure and report any significant changes. - Consider getting the flu shot as discussed.
[2024-11-02 16:04] VITALS: BP 136/82; BMI 28.0
== END 2024-11-02 16:56 | disposition home or self-care (01) ==
PROVIDERS: PCP Internal Medicine; Visit Provider Internal Medicine
DX: Z00.00 Encounter for general adult medical examination without abnormal findings (principal); R22.31 Localized swelling, mass and lump, right upper limb; Z23 Encounter for immunization

== ENCOUNTER → 2024-11-02 15:37 | Outpatient (BNVA) | payer BC, SELFPAY | PROVIDERS: PCP Internal Medicine; Visit Provider Internal Medicine | DX: Z00.00 Encounter for general adult medical examination without abnormal findings (principal); Z23 Encounter for immunization; R22.31 Localized swelling, mass and lump, right upper limb; I10 Essential (primary) hypertension; Z79.899 Other long term (current) drug therapy | CPT/HCPCS: 90471; 90656; 96127 ==

== ENCOUNTER 2024-11-26 07:01 | Outpatient (REF) | payer BC, SELFPAY ==
--- NOTE | ~2024-11-26 | XR_ITS ---
EXAMINATION: XR HAND, RIGHT CLINICAL INFORMATION: M79.641 - Pain in right hand COMPARISON: None available. TECHNIQUE: PA, lateral, and oblique views of the right hand. FINDINGS: No fracture, dislocation, or suspicious bone lesion. Normal bone mineralization. No periarticular osteopenia, joint space loss, or periarticular erosion. Carpal bones are intact and normally aligned. Normal soft tissues. XR/XR hand RT min 3V IMPRESSION: Normal right hand. Electronically signed by: Wilman Dixon MD 11/26/2024 08:02 AM [facility]
--- OUTSIDE RECORDS SUMMARY | 2024-11-26 07:03 | XMS_ITS | Clinical Summary ---
Author Organization [facility] Address [address] [address] Phone Care Team Providers Care Grab Driver Name Role Phone Zara Lucero MD Primary Care Provider [phone] Allergies No known active allergies Medications amLODIPine (NORVASC) 5 MG tabletIndication s:Chronic kidney disease, stage 2 (mild),Secondary hypertension, not otherwise specified Take 1 tablet (5 mg total) by mouth 1 (one) time each day 90 tablet 3 06/03/2024 5 Active Active Problems Problem Noted Date Diagnosed Date Chronic kidney disease, stage 2 (mild) 4 Other acute kidney failure 07/12/2021 Secondary hypertension, not otherwise specified 07/12/2021 Encounters Date Type Department Care Team Description 08/31/2024 3:15 PM EST Office Visit [facility] [address] [phone] Maria Luisa Pandya ARNP Chronic kidney disease, stage 2 (mild) (Primary Dx); Secondary hypertension, not otherwise specified from Last 3 Months Family History Medical History Relation Comments Diabetes Father Heart disease Father Hypertension Father Arthritis Mother Hypertension Mother Relation Status Comments Father Mother Social History Tobacco Use Types Packs/Day Years Used Date Smoking Tobacco: Never Smokeless Tobacco: Never Tobacco Cessation:Counseling Given: Not Answered Alcohol Use Standard Drinks/Week Comments Never 0 (1 standard drink = 0.6 oz pur e alcohol) Sex and Gender Information Value Date Recorded Sex Assigned at Not on file Legal Sex Male 8:25 AM EDT Gender Identity Not on file Sexual Orientation Not on file Last Filed Vital Signs Vital Sign Reading Time Taken Comments Blood Pressure 128/96 08/31/2024 3:50 PM EST Pulse 68 08/31/2024 3:50 PM EST Temperature - - Respiratory Rate - - Oxygen Saturation 98% 11/27/2023 4:00 PM EST Inhaled Oxygen Concentration - - Weight 87.1 kg (192 lb) 08/31/2024 3:50 PM EST Height 179.1 cm (5' 10.5 ) 10/24/2021 4:44 PM ES T Body Mass Index 27.16 10/24/2021 4:44 PM EST Plan of Treatment Upcoming Encounters Date Type Department Care Team (Late st Contact Info) Description 08/31/2025 4:30 PM EST Office Visit [facility] [address] [phone] Maria Luisa Pandya ARNP [address] [phone] Health Maintenance Due Date Last Done Comments Hepatitis B Vaccine (1 of 3 - 19+ 3-dose series) 09/28 Pneumococcal Vaccine: Pediat rics (0 to 5 Years) and At-Risk Patients (6 to 64 Years) (2 of 2 - PCV) 12/16/2019 12/16/2018 Influenza Vaccine (#1) 2024 Insurance [facility] Care Teams Grab Driver Relationship Specialty Start Date End Date Zara Lucero MD [address] [place] [address] PCP - General Internal Medicine 11/27/23
--- OUTSIDE RECORDS SUMMARY | 2024-11-26 07:03 | XMS_ITS | Encounter Summary ---
Author Organization [facility] Address [address] [place] [address] Phone Care Team Providers Care Dietetic Technician Name Role Phone Zara Lucero MD Primary Care Provider Encounter Details Date Type Department Care Team (Late Contact Info) Description 11/26/2022 Documentation Only [facility] [address] [place] [phone] Dean Mallika, PA Social History Tobacco Use Types Packs/Day Years Used Date Smoking Tobacco: Never Smokeless Tobacco: Never Alcohol Use Standard Drinks/Week Comments Never 0 (1 standard drink = 0.6 oz pur e alcohol) Sex and Gender Information Value Date Recorded Sex Assigned at Not on file Legal Sex Male 8:25 AM EDT Gender Identity Not on file Sexual Orientation Not on file documented as of this encounter Plan of Treatment Upcoming Encounters Date Type Department Care Team (Late st Contact Info) Description 08/31/2025 4:30 PM EST Office [facility] [address] [facility] [address] [place] [address] Maria Luisa Pandya ARNP [address] [facility] [address] [place] [address] documented as of this encounter Visit Diagnoses Not on filedocumented in this encounter Care Teams Dietetic Technician Relationship Specialty Start Date End Date Zara Lucero MD [address] [place] [address] PCP - General Internal Medicine 11/27/23 documented as of this encounter
--- OUTSIDE RECORDS SUMMARY | 2024-11-26 07:03 | XMS_ITS | Clinical Summary ---
Author Organization [employer] [facility] it Address [address] [place] [address] Care Team Providers Care Parcel Contractor Name Role Phone Unavailable Primary Care Provider Unavailabl e Social History Tobacco Use Types Packs/Day Years Used Date Smoking Tobacco: Never Assessed Sex and Gender Information Value Date Recorded Sex Assigned at Not on file Gender Identity Not on file Sexual Orientation Not on file Plan of Treatment Health Maintenance Due Date Last Done Comments DTaP,Tdap,and Td Vaccines (1 - Tdap) 2001 Hepatitis B Vaccines (1 of 3 - 19+ 3-dose series) 2001 COVID-19 Vaccine (2023-2 5 season) 2024 Influenza Vaccine (#1) 2024 HIB Vaccines Aged Out No longer eligi ble based on patient's age to complete this topic HPV Vaccines Aged Out No longer eligi ble based on patient's age to complete this topic Hepatitis A Vaccines Aged Out No long er eligible based on patient's age to complete this topic IPV Vaccines Aged Out No longer eligi ble based on patient's age to complete this topic MMR Vaccines Aged Out No longer eligi ble based on patient's age to complete this topic Meningococcal ACWY Vaccine Aged Out N o longer eligible based on patient's age to complete this topic Pneumococcal Vaccine: Pediat rics (0 to 5 Years) and At-Risk Patients (6 to 64 Years) Aged Out No longer eligible b ased on patient's age to complete this topic RSV Immunization Patients Un sal[place] 20 months Aged Out No longer eligible b ased on patient's age to complete this topic Varicella Vaccines Aged Out No longer eligible based on patient's age to complete this topic
== END 2024-11-26 07:02 | disposition home or self-care (01) ==
LOC: HO.HOSX 07:01
DX: M79.641 Pain in right hand (principal); R22.31 Localized swelling, mass and lump, right upper limb
CPT/HCPCS: 73130

== ENCOUNTER 2024-11-26 07:48 | Outpatient (AMB) | payer BC, SELFPAY ==
--- OUTSIDE RECORDS SUMMARY | 2024-11-26 07:50 | XMS_ITS | Clinical Summary ---
Author Organization [facility] Address [address] [address] Phone Care Team Providers Care Director Of Occupational Health Name Role Phone Zara Lucero MD Primary Care Provider [phone] Allergies No known active allergies Medications amLODIPine [...] Office Visit [facility] [address] [address] Maria Luisa Pandya ARNP Chronic [...] Office Visit [facility] [address] [phone] Maria Luisa Pandya ARNP [address] [phone] Health Maintenance Due Date Last Done Comments Hepatitis B Vaccine (1 of 3 - 19+ 3-dose series) 09/28 Pneumococcal Vaccine: Pediat rics (0 to 5 Years) and At-Risk Patients (6 to 64 Years) (2 of 2 - PCV) 12/16/2019 12/16/2018 Influenza Vaccine (#1) 2024 Insurance [facility] Care Teams Director Of Occupational Health Relationship Specialty Start Date End Date Zara Lucero MD [address] [place] [address] PCP - General Internal Medicine 11/27/23
--- OUTSIDE RECORDS SUMMARY | 2024-11-26 07:50 | XMS_ITS | Clinical Summary ---
Author Organization [facility] it Address [address] [place] [address] Care Team Providers Care Chemical Engraver Name Role Phone Unavailable Primary Care Provider [...]
--- OUTSIDE RECORDS SUMMARY | 2024-11-26 07:50 | XMS_ITS | Encounter Summary ---
Author Organization [facility] Address [address] [place] [address] Phone Care Team Providers Care High Density Press Operator Name Role Phone Zara Lucero MD Primary Care Provider Encounter Details Date Type Department Care Team (Late Contact Info) Description 11/26/2022 Documentation Only [facility] [address] [place] [phone] Dean Mallika, [place] Social History Tobacco Use Types Packs/Day Years [...] Visit [facility] [address] [facility] [address] [place] [address] Maria Luisa Pandya ARNP [address] [facility] [address] [place] [address] documented as of this encounter Visit Diagnoses Not on filedocumented in this encounter Care Teams High Density Press Operator Relationship Specialty Start Date End Date Zara Lucero MD [address] [place] [address] PCP - General Internal Medicine 11/27/23 documented as of this encounter
--- NOTE | 2024-11-26 08:01 | A.OFFVIS_ITS ---
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 Patient reports that he has had a palpable mass on the palm of his right hand between the pointer and middle finger MCP. This is not painful at baseline but it is uncomfortable when he is lifting or grasping things. denies numbness and tingling. 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 Patient states that this mass has remained the same size since he has noticed it, does occasionally cause him discomfort when it was directly pushed on. Patient states that this mass does fluctuate in size occasionally, but always goes back to this original size. Patient denies any redness, warmth, or other signs of infection. Denies numbness or tingling. No other acute complaints or concerns at this time. [facility] Medical History Adrenal nodule Aldosteronism Uncontrolled hypertension Umbilical hernia Surgical History H/O colonoscopy S/P umbilical hernia repair, follow-up exam Family History Mother Type II diabetes mellitus Rheumatoid arteritis Hypertension Father Type II diabetes mellitus History of open heart surgery Hypertension History of colon polyps Social History Housing: Apartment Alcohol intake: former Patient Tobacco Use Status: Former Tobacco user Tobacco use type: Cigarette e-Cigarette/Vaping Use: Never Used Second Hand Smoke Exposure: No service: No Current occupational status: employed Current occupational exposures/hazards: No Cognitive needs: No Hearing needs: No Vision needs: No Review of Systems Const All systems reviewed & are unremarkable except as noted in HPI and below Physical Exam Vital Signs: BMI result Body Mass Index 28.0 Extrem Other: Patient is alert, oriented, and in no acute distress. Neuro: Normal sensation of the tips of all digits of the right hand at this time Vascular: Cap refill brisk Pain: Patient reports minimal tenderness to palpation about the round and mobile mass noted in the 2nd webspace of the right hand ROM: Patient was able to flex and extend all digits of the right hand fully and without difficulty Skin: No lacerations or abrasions. General: Small, approximately 0.5-0.75 cm round, mobile mass noted in the 2nd webspace of the right hand No ecchymosis, erythema, or evidence of infection. Psych: Appears grossly normal Affect normal Attitude cooperative Assessment & Plan Assessment & Plan (1) Mass of right hand: Code(s): R22.31 - Localized swelling, mass and lump, right upper limb Category: Medical Plan 1. Small, firm, mobile mass of the right hand Present for approximately 1 year At this time, patient was referred for CT scan of the right hand to better assess what this mass is and determine if any intervention is indicated Patient was amenable to this plan Patient will follow-up after CT scan for results review and discussion of further treatment options if indicated, sooner with any acute concerns Orders: Orders XR hand RT min 3V Today M79.641 - Pain in right hand CT hand RT wo IV con Today R22.31 - Localized swelling, mass and lump, right upper limb Coding Level of Care Code New Pt Level 3 (14013) Diagnoses Mass of right hand R22.31
[2024-11-26 08:02] VITALS: BMI 28.0
== END 2024-11-26 08:48 | disposition home or self-care (01) ==
PROVIDERS: PCP Internal Medicine
DX: R22.31 Localized swelling, mass and lump, right upper limb (principal)
CPT/HCPCS: 99203

== ENCOUNTER → 2024-11-26 07:50 | Outpatient (BNV) | payer BC, SELFPAY | PROVIDERS: Visit Provider Radiology Diagnostic Radiology | DX: M79.641 Pain in right hand (principal) | CPT/HCPCS: 73130 ==

== ENCOUNTER 2024-11-27 07:13 | Outpatient (REF) | payer BC, SELFPAY ==
[2024-11-27 08:56] LABS: Alanine Aminotransferase 26 U/L (0-40); Albumin Level 4.6 g/dL (3.5-5.0); Alkaline Phosphatase 60 U/L (39-117); Anion Gap 11 (12-20); Aspartate Amino Transferase 35 U/L (5-37); Bilirubin Total 0.5 mg/dL (0.0-1.0); Blood Urea Nitrogen 17 mg/dL (9-16); Calcium 9.8 mg/dL (8.4-10.2); Carbon Dioxide 27 mmol/L (22-29); Chloride 109 mmol/L (96-108); Cholesterol 183 mg/dL (<200); Estimated Glomerular Filt Rate > 60; Glucose Fasting 94 mg/dL (60-99); HDL Cholesterol 51 mg/dL (>40); LDL Cholesterol Calculated 118 mg/dL (<100); Potassium 4.3 mmol/L (3.3-5.1); Sodium 143 mmol/L (135-145); Triglycerides 74 mg/dL (<150)
== END 2024-11-27 07:14 | disposition home or self-care (01) ==
LOC: HO.LAB 07:13
PROVIDERS: PCP Internal Medicine; Visit Provider Internal Medicine
DX: Z00.00 Encounter for general adult medical examination without abnormal findings (principal)
CPT/HCPCS: 36415; 80053; 80061

== ENCOUNTER 2025-01-26 15:10 | Outpatient (REF) | payer BC, SELFPAY ==
--- NOTE | ~2025-01-26 | CT_ITS ---
CLINICAL HISTORY: R22.31 - Localized swelling, mass and lump, right upper limb CT of the right hand with IV contrast. COMPARISON: XR right hand dated 11/26/24 at 07:50 EST FINDINGS: Distal radius and ulna appear intact. Carpal bones appear intact. Metacarpals and phalanges appear intact. No lytic or sclerotic lesion. No periostitis. No erosions identified. Well-defined ovoid lesion within the fat between the 2nd and 3rd proximal phalanges measuring 0.5 x 0.7 x 0.7 cm. Lesion demonstrates homogeneous increased attenuation. No aggressive features. No organizing fluid collection. No foreign body identified. IMPRESSION: 1. Well-defined benign-appearing ovoid lesion within the fat between the 2nd and 3rd proximal phalanges measuring up to 0.7 cm. There is homogeneous increased attenuation within this lesion although is unclear whether this represents calcification versus enhancement. Of note there was no calcification in the soft tissues at this location on prior radiograph dated 11/26/2024 although calcification of the lesion could be new since that time. Recommend repeat hand radiograph, ultrasound or repeat CT without contrast to evaluate whether this represents enhancement versus calcification. This document has been electronically signed by: Domingo Michaels MD on 01/27/2025 14:59:13
[2025-01-26] MEDS: iohexoL 350 MG/ML 100 ML INFUS..BTL IV (15:36)
--- OUTSIDE RECORDS SUMMARY | 2025-01-26 17:14 | XMS_ITS | Clinical Summary ---
Author Organization [employer] [facility] it Address [address] [place] [address] Care Team Providers Care Warehouse Assistant Name Role Phone Unavailable Primary Care Provider Unavailabl e Social History Tobacco Use Types Packs/Day Years Used Date Smoking Tobacco: Never Assessed Sex and Gender Information Value Date Recorded Sex Assigned at Not on file Legal Sex Male 4:32 AM EST Gender Identity Not on file Sexual Orientation [...] patient's age to complete this topic Meningococcal B Vaccine Aged Out No l onger eligible based on patient's age to complete [...]
--- OUTSIDE RECORDS SUMMARY | 2025-01-26 17:14 | XMS_ITS | Clinical Summary ---
Author Organization [facility] Address [address] [facility] [address] [place] [address] Phone Care Team Providers Care Oil Field Pumper Name Role Phone Zara Lucero MD Primary Care Provider [phone] Allergies No known active allergies Medications amLODIPine [...] 07/12/2021 Secondary hypertension, not otherwise specified 07/12/2021 Family History Medical History Relation Comments Diabetes [...] [facility] [address] [facility] [address] [place] [address] Maria Luisa Pandya ARNP [address] [facility] [address] [place] [address] Health Maintenance Due Date Last Done Comments Hepatitis B Vaccine (1 of 3 - 19+ 3-dose series) 09/28 Pneumococcal Vaccine: Pediat rics (0 to 5 Years) and At-Risk Patients (6 to 64 Years) (2 of 2 - PCV) 12/16/2019 12/16/2018 Influenza Vaccine (Season Ended) 2025 Insurance [facility] Care Teams Oil Field Pumper Relationship Specialty Start Date End Date Zara Lucero MD [address] [place], [place] PCP - General Internal Medicine 11/27/23
--- OUTSIDE RECORDS SUMMARY | 2025-01-26 17:14 | XMS_ITS | Encounter Summary ---
Author Organization [facility] Address [address] [place] [address] Phone Care Team Providers Care Program Management Intern Name Role Phone Zara Lucero MD Primary Care Provider [phone] Encounter Details Date Type Department Care Team (Late Contact Info) Description 11/26/2022 Documentation Only [facility] [address] [place] [phone] Dean Mallika, [place] Social History Tobacco Use Types Packs/Day Years [...] Visit [facility] [address] [facility] [address] [place] [address] Maria Luisa Pandya ARNP [address] [facility] [address] [place] [address] documented as of this encounter Visit Diagnoses Not on filedocumented in this encounter Care Teams Program Management Intern Relationship Specialty Start Date End Date Zara Lucero MD [address] [place] [address] PCP - General Internal Medicine 11/27/23 documented as of this encounter
== END 2025-01-26 15:11 | disposition home or self-care (01) ==
LOC: HO.CT 15:10
PROVIDERS: PCP Internal Medicine
DX: R22.31 Localized swelling, mass and lump, right upper limb (principal)
CPT/HCPCS: 73201; Q9967

== ENCOUNTER → 2025-01-26 15:12 | Outpatient (BNV) | payer BC, SELFPAY | PROVIDERS: PCP Internal Medicine; Visit Provider Radiology Diagnostic Radiology | DX: R22.31 Localized swelling, mass and lump, right upper limb (principal) | CPT/HCPCS: 73201 ==

== ENCOUNTER 2025-03-01 14:40 | Outpatient (AMB) | payer BC, SELFPAY ==
--- NOTE | 2025-03-01 14:46 | A.OFFVIS_ITS ---
Vital Signs 03/01/25 14:48 Height 5 ft 10 in Weight 195 lb BMI 28.0 Intake Visit Reasons: OV CT review RT Hand Intake Note: Tulio is a 44 year old right hand dominant male who presents today for a CT review of mass on right hand. Allergies No Known Allergies Allergy (Verified 03/01/25 14:47) HPI HPI OV CT review RT Hand: Details: Tulio is a 44 year old right hand dominant male who presents today for a CT review of mass on right hand. Patient reports no change in symptoms since previous evaluation. [facility] Medical History Adrenal nodule Aldosteronism Uncontrolled hypertension Umbilical hernia Surgical History H/O colonoscopy S/P umbilical hernia repair, follow-up exam Family History Mother Type II diabetes mellitus Rheumatoid arteritis Hypertension Father Type II diabetes mellitus History of open heart surgery Hypertension History of colon polyps Social History Housing: Apartment Alcohol intake: former Patient Tobacco Use Status: Former Tobacco user Tobacco use type: Cigarette e-Cigarette/Vaping Use: Never Used Second Hand Smoke Exposure: No service: No Current occupational status: employed Current occupational exposures/hazards: No Cognitive needs: No Hearing needs: No Vision needs: No Review of Systems Const All systems reviewed & are unremarkable except as noted in HPI and below Physical Exam Vital Signs: BMI result Body Mass Index 28.0 Extrem Other: Patient is alert, oriented, and in no acute distress. Neuro: Normal sensation of the tips of all digits of the right hand at this time Vascular: Cap refill brisk Pain: Patient reports minimal tenderness to palpation about the round and mobile mass noted in the 2nd webspace of the right hand ROM: Patient was able to flex and extend all digits of the right hand fully and without difficulty Skin: No lacerations or abrasions. General: Small, approximately 0.5-0.75 cm round, mobile mass noted in the 2nd webspace of the right hand No ecchymosis, erythema, or evidence of infection. Psych: Appears grossly normal Affect normal Attitude cooperative Results Reviewed Results Reviewed: IMPRESSION: 1. Well-defined benign-appearing ovoid lesion within the fat between the 2nd and 3rd proximal phalanges measuring up to 0.7 cm. There is homogeneous increased attenuation within this lesion although is unclear whether this represents calcification versus enhancement. Of note there was no calcification in the soft tissues at this location on prior radiograph dated 11/26/2024 although calcification of the lesion could be new since that time. Recommend repeat hand radiograph, ultrasound or repeat CT without contrast to evaluate whether this represents enhancement versus calcification. This document has been electronically signed by: Domingo Michaels MD on 01/27/2025 14:59:13 Assessment & Plan Assessment & Plan (1) Mass of right hand: Code(s): R22.31 - Localized swelling, mass and lump, right upper limb Category: Medical Plan 1. Small, firm, mobile mass of the right hand Present for approximately 1 year After review of CT scan findings, both myself and the patient feel it is in his best interest to have this mass removed Therefore, patient is referred to Dr. Lima for next available surgical consult for discussion of removal of right hand mass Patient is amenable to this plan Coding Level of Care Code Est Pt Level 3 (17883) Diagnoses Mass of right hand R22.31
[2025-03-01 14:48] VITALS: BMI 28.0
--- OUTSIDE RECORDS SUMMARY | 2025-03-01 15:49 | XMS_ITS | Encounter Summary ---
Author Organization [facility] [place] Address [address] [place] [address] Phone Care Team Providers Care Dragger Name Role Phone Zara Lucero MD Primary Care Provider [phone] Encounter Details Date Type Department Care Team (Late Contact Info) Description 11/26/2022 Documentation Only [facility] [address] [place] [phone] Dean Mallika, [place] Social History Tobacco Use Types Packs/Day Years [...] Visit [facility] [address] [facility] [address] [place] [address] Maria Luisa Pnadya ARNP [address] [facility] [address] [place] [address] documented as of this encounter Visit Diagnoses Not on filedocumented in this encounter Care Teams Dragger Relationship Specialty Start Date End Date Zara Lucero MD [address] [place] [address] PCP - General Internal Medicine 11/27/23 documented as of this encounter
--- OUTSIDE RECORDS SUMMARY | 2025-03-01 15:49 | XMS_ITS | Clinical Summary ---
Author Organization [employer] [facility] it Address [address] [place] [address] Care Team Providers Care Pattern Lease Inspector Name Role Phone Unavailable Primary Care Provider [...] Vaccine (2023-2 5 season) 2024 Influenza Vaccine (Season Ended) 2025 HIB Vaccines Aged Out No longer eligi [...]
--- OUTSIDE RECORDS SUMMARY | 2025-03-01 15:49 | XMS_ITS | Clinical Summary ---
Author Organization [facility] Address [address] [facility] [address] [place] [address] Phone Care Team Providers Care Pizza Hut Assistant Name Role Phone Zara Lucero MD Primary Care Provider [phone] Allergies No known active allergies Medications amLODIPine [...] Office Visit [facility] [address] [facility] [address] [place] [address] Maria Luisa Pandya ARNP [address] [facility] [address] [place] [address] Health Maintenance Due Date Last Done Comments Hepatitis B Vaccine (1 of 3 - 19+ 3-dose series) 09/28 Pneumococcal Vaccine: Peds ( 0 to 5 Years) and At-Risk Patients (6 to 49 Years) (2 of 2 - PCV) 12/16/2019 12/16/2018 Influenza Vaccine (Season Ended) 2025 Insurance [facility] Care Teams Pizza Hut Assistant Relationship Specialty Start Date End Date Zara uLcero MD [address] [place], [place] PCP - General Internal Medicine 11/27/23
== END 2025-03-01 14:50 | disposition home or self-care (01) ==
LOC: HO.HOS 14:40
PROVIDERS: PCP Internal Medicine
DX: R22.31 Localized swelling, mass and lump, right upper limb (principal)
CPT/HCPCS: 99213

== ENCOUNTER → 2025-03-01 14:40 | Outpatient (BNVA) | payer BC, SELFPAY | PROVIDERS: PCP Internal Medicine ==

== ENCOUNTER 2025-04-06 13:36 | Outpatient (AMB) | payer BC, SELFPAY ==
[2025-04-06 13:40] VITALS: BMI 28.0
--- NOTE | 2025-04-06 13:40 | A.OFFVIS_ITS ---
Vital Signs 04/06/25 13:40 Height 5 ft 10 in Weight 195 lb BMI 28.0 Intake Visit Reasons: OV- Discuss Right hand mass Intake Note: Tulio 44 yr old right hand dominant male presents today for discussion of removal of right hand mass. Last seen with Arturo Pak who reviewed CT and advise for further evaluation with Dr Lima. Allergies No Known Allergies Allergy (Verified 04/06/25 13:41) HPI HPI OV- Discuss Right hand mass: Details: Tulio is a 44 year old right hand dominant Arabic speaking man who presents to discuss a right hand mass, & CT scan review. He complains of a mass in his right hand for ~18 months now. He says this is s omewhat painful when applying pressure. He says this occasionally changes in size but eventually returns to its normal size. He says when it swells he has increased pain & discomfort. This was larger in size just 2 weeks ago. He denies any locking, or catching. He reports some occasional numbness in the radial aspect of the middle finger, and ulnar aspect of the index finger when this mass increases in size. [facility] Medical History Adrenal nodule Aldosteronism Uncontrolled hypertension Umbilical hernia Surgical History H/O colonoscopy S/P umbilical hernia repair, follow-up exam Family History Mother Type II diabetes mellitus Rheumatoid arteritis Hypertension Father Type II diabetes mellitus History of open heart surgery Hypertension History of colon polyps Social History Housing: Apartment Alcohol intake: former Patient Tobacco Use Status: Former Tobacco user Tobacco use type: Cigarette e-Cigarette/Vaping Use: Never Used Second Hand Smoke Exposure: No service: No Current occupational status: employed Current occupational exposures/hazards: No Cognitive needs: No Hearing needs: No Vision needs: No Review of Systems Const All systems reviewed & are unremarkable except as noted in HPI and below Physical Exam Vital Signs: BMI result Body Mass Index 28.0 Const General: cooperative, healthy appearing and no acute distress Orientation/consciousness: patient oriented x3 HEENT Head: Yes normocephalic and Yes atraumatic Eyes EOM: EOMs intact bilaterally Resp Effort & Inspection: normal respiratory effort and able to speak in complete sentences Cardio Jugular venous distension: no JVD Skin General skin exam: turgor normal Rashes: no rashes Neuro General: patient oriented x3 Extrem Other: Evaluation of Right Upper Extremity: The patient is alert, oriented, and in no acute distress Neuro: Median, Ulnar, Radial nerves motor and sensory intact and sensation is normal to the tips of all digits Vascular: Cap refill brisk ROM: He can make a fist and extend all his digits No locking or catching Skin: No lacerations or abrasions. General: No Ecchymosis. No Erythema or evidence of infection. There is a mass in the 2nd webspace, soft, mobile, and mildly tender. measures ~0.5cm in diameter Right hand CT IMPRESSION: 1. Well-defined benign-appearing ovoid lesion within the fat between the 2nd and 3rd proximal phalanges measuring up to 0.7 cm. There is homogeneous increased attenuation within this lesion although is unclear whether this represents calcification versus enhancement. Of note there was no calcification in the soft tissues at this location on prior radiograph dated 11/26/2024 although calcification of the lesion could be new since that time. Recommend repeat hand radiograph, ultrasound or repeat CT without contrast to evaluate whether this represents enhancement versus calcification. This document has been electronically signed by: Domingo Michaels MD on 01/27/2025 Psych Appearance: grossly normal Affect: normal affect Attitude: cooperative Assessment & Plan Assessment & Plan (1) Mass of right hand: Code(s): R22.31 - Localized swelling, mass and lump, right upper limb Category: Medical Plan Assessment & Plan: 1. Right hand mass In the 2nd webspace, mildly tender Measuring ~0.5cm in diameter I educated him about this condition I discussed operative and non-operative treatment options The patient would like to proceed with surgery The risks and benefits of operative treatment were discussed with the patient and the patient wishes to proceed with surgery. These risks include, but are not limited to risk of damage to blood vessels, nerves, tendons, infection, recurrence, incomplete relief of preoperative symptoms, persistent pain, possible need for further surgery and the risks associated with regional blocks and anesthesia. The plan is to take the patient to the operating room sometime on 05/02/25 for the following procedures: 1. Right hand 2nd webspace mass excisional biopsy, under local All of the preoperative paperwork including the consent was reviewed today. All the patient's questions were answered. The patient understands that they will be contacted by our senior power scheduler soon to schedule this procedure He denies Diabetes, blood thinners, asthma, heart, lung, kidney issues Scribed for Sharon Lima MD by Teddy Sawyer, medical technologist generalist, on 04/06/25 at 1:55 PM, EST. Coding Level of Care Code Est Pt Level 4 (46319) Diagnoses Mass of right hand R22.31
--- OUTSIDE RECORDS SUMMARY | 2025-04-06 15:37 | XMS_ITS | Clinical Summary ---
Author Organization [facility] Address [address] [facility] [address] [place] [address] Phone Care Team Providers Care Central Office Repairer Supervisor Name Role Phone Zara Lucero MD Primary Care Provider [phone] Allergies No known active allergies Medications amLODIPine [...] Office Visit [facility] [address] [facility] [address] [place] [address] Maria Luisa Pandya ARNP [address] [facility] [address] [place] [address] Health Maintenance Due Date Last Done Comments Hepatitis B Vaccine (1 of 3 - 19+ 3-dose series) 09/28 Pneumococcal Vaccine: Peds ( 0 to 5 Years) and At-Risk Patients (6 to 49 Years) (2 of 2 - PCV) 12/16/2019 12/16/2018 Influenza Vaccine (Season Ended) 2025 Insurance [facility] Care Teams Central Office Repairer Supervisor Relationship Specialty Start Date End Date Zara Lucero MD [address] [facility] [place], [place] PCP - General Internal Medicine 11/27/23
== END 2025-04-06 14:08 | disposition home or self-care (01) ==
LOC: HO.HOS 13:37
PROVIDERS: PCP Internal Medicine; Visit Provider Orthopaedic Surgery
DX: R22.31 Localized swelling, mass and lump, right upper limb (principal)
CPT/HCPCS: 99214

== ENCOUNTER → 2025-04-06 13:36 | Outpatient (BNVA) | payer BC, SELFPAY | PROVIDERS: PCP Internal Medicine; Visit Provider Orthopaedic Surgery ==

== ENCOUNTER 2025-05-02 06:50 | Day surgery (SDC) | payer BC, SELFPAY ==
--- OUTSIDE RECORDS SUMMARY | 2025-04-14 15:18 | XMS_ITS | Clinical Summary ---
Author Organization [facility] Address [address] [facility] [address] [place] [address] Phone Care Team Providers Care Flow Nurse Name Role Phone Zara Lucero MD Primary Care Provider [phone] Allergies No known active allergies Medications amLODIPine [...] Office Visit [facility] [address] [facility] [address] [place] [address] Maria Luisa Pandya ARNP [address] [facility] [address] [place] [address] Health Maintenance Due Date Last Done Comments Hepatitis B Vaccine (1 of 3 - 19+ 3-dose series) 09/28 Pneumococcal Vaccine: Peds ( 0 to 5 Years) and At-Risk Patients (6 to 49 Years) (2 of 2 - PCV) 12/16/2019 12/16/2018 Influenza Vaccine (Season Ended) 2025 Insurance [facility] Care Teams Flow Nurse Relationship Specialty Start Date End Date Zara Lucero MD [address] [place], [place] PCP - General Internal Medicine 11/27/23
[2025-05-02 08:32] VITALS: BP 134/82; PULSE 59; RESP 16; TEMP 36.7; O2SAT 100
--- NOTE | 2025-05-02 09:39 | P.OP_ITS ---
Operative Note Operative Note Date of Service: 05/02/25 Narrative: Operative Note Preop diagnosis: 1. Right 2nd webspace soft tissue mass Postop diagnosis: same Procedure: 1. Right 2nd webspace soft tissue mass excisional biopsy Surgeon: Sharon Lima MD Sock Knitting Machine Operator: Pasha CASILLAS Anesthesia: digital block using 1% lidocaine with epinephrine Findings: A purplish round multi lobular soft tissue mass measuring perhaps 3-4 mm in diameter was removed from the volar aspect of the 2nd webspace. It appears to be most consistent with a hemangioma, and will be sent for histopathology EBL: Less than 5 mL Tourniquet time: None Specimens: Right 2nd webspace mass sent for histopathology Complications: None Disposition: Brought to recovery room in stable condition Plan: Follow-up for 7-10 days for wound check and suture removal and to check pathology Indications: The patient is 44 years old, with a mass in the 2nd webspace of the right hand . The risks and benefits of operative treatment including but not limited to risk of damage to blood vessels, nerves, tendons, infection, persistent pain, persistent symptoms, recurrence or possible need for additional surgery were discussed with the patient and the patient wishes to proceed with surgery. Procedure: Once consent was obtained a digital block was performed in the preop area using a combination of 1% lidocaine with epinephrine. The patient was then brought back to the operating suite and placed on the operative table in supine position. The right upper extremity was prepped and draped in a standard surgical fashion. Once assured that we had a good block, I made an oblique incision just proximal to the web of the 2nd webspace on the palmar side of the hand. The incision was made through the skin to the subcutaneous tissues. I then dissected down to the level of the soft tissue mass. ?A purplish round multi lobular soft tissue mass measuring perhaps 3-4 mm in diameter was dissected free from the surrounding tissues and removed from the volar aspect of the 2nd webspace.? It appears to be most consistent with a hemangioma, and was sent for histopathology. Once satisfied with mass excision the wound was copiously irrigated with normal saline and hemostasis was obtained with a brief period of local pressure. The skin edges were reapproximated with some 5.0 nylon suture material and a sterile dressing was applied. The patient appears to have tolerated the procedure well and with no complications. All digits were well vascularized at the conclusion of the case.
--- NOTE | 2025-05-02 09:39 | MHC.SHP ---
Pre-Procedural Eval Section A - 24 Hr Update-Section A only Date of Service: 05/02/25 The patient is an INPATIENT: No Changes since office visit: No Cold of Flu in the past 2 weeks, No New Medical Problems, No Changes in Medication and No Patient answered all questions The patient has been examined within 24 hours of the surgical procedure. The History & Physical has been completed within 30 days and I have reviewed it.: Yes Section B - Complete if H&P > 30 days Chief Complaint: Localized swelling, mass and lump, right upper jara Allergies: Allergies Allergy/AdvReac Type Severity Reaction Status Date / Time No Known Allergies Allergy Verified 04/06/25 13:41 Plan Diagnosis/Plan: Unchanged I have reviewed the history and physical and performed a pertinent physical examination on my patient. No changes have occurred unless specified. Time Spent With Patient Time: Total time managing care of this patient today ____ minutes.
[2025-05-02 10:27] VITALS: BP 132/77; PULSE 66; RESP 16; O2SAT 100
== END 2025-05-02 10:40 | disposition home or self-care (01) ==
PROVIDERS: PCP Internal Medicine; Visit Provider Orthopaedic Surgery
PROC: (CPT 26115; principal; 2025-05-02 11:10)
DX: R22.31 Localized swelling, mass and lump, right upper limb (principal); M79.641 Pain in right hand; I10 Essential (primary) hypertension; E26.9 Hyperaldosteronism, unspecified; Z87.891 Personal history of nicotine dependence
CPT/HCPCS: 26115; 88304; 88305; J0165; J2003

== ENCOUNTER → 2025-05-02 06:50 | Outpatient (BNV) | payer BC, SELFPAY | PROVIDERS: PCP Internal Medicine; Visit Provider Orthopaedic Surgery | DX: R22.31 Localized swelling, mass and lump, right upper limb (principal) | CPT/HCPCS: 26115 ==

== ENCOUNTER 2025-05-16 13:43 | Outpatient (AMB) | payer BC, SELFPAY ==
--- NOTE | 2025-05-16 14:11 | MHC.OFFVIS ---
Vital Signs 05/16/25 14:23 Height 5 ft 10 in Weight 195 lb BMI 28.0 Handedness Right Intake Visit Reasons: PO-Rt 2nd Webspace Mass Exc Bx 05/02/25 Intake Note: Tulio is a 44 year old right hand dominant male who presents today for a post operative visit status post right 2nd webspace soft tissue mass excisional biopsy, DOS: 05/02/[address] Lima. Patient reports concern for infection on one of the stitches and stiffness, overall, he reports doing well. He is no longer taking pain medication. Denies numbness, tingling, finger locking. Telephone Operator Receptionist Required: Yes Telephone Operator Receptionist Language: Horse Race Starter Services: Telephone Operator Receptionist Present Telephone Operator Receptionist Name: JAHAIRA Gonzalez/WAGNER Allergies No Known Allergies Allergy (Verified 05/16/25 14:11) HPI HPI PO-Rt 2nd Webspace Mass Exc Bx 05/02/25: Details: Tulio is a 44 year old right hand dominant male who presents today for a post operative visit status post right 2nd webspace soft tissue mass excisional biopsy, DOS: 05/02/[address] Lima. Patient reports concern for infection on one of the stitches and stiffness, overall, he reports doing well. Denies any redness or pain around the incision site. He is no longer taking pain medication. Denies numbness, tingling, finger locking. [facility] Medical History Adrenal nodule Aldosteronism Uncontrolled hypertension Umbilical hernia Surgical History H/O colonoscopy S/P umbilical hernia repair, follow-up exam Family History Mother Type II diabetes mellitus Rheumatoid arteritis Hypertension Father Type II diabetes mellitus History of open heart surgery Hypertension History of colon polyps Social History (Updated 05/16/25 @ 14:23 by JAHAIRA Jarrett) Housing: Apartment Alcohol intake: former Patient Tobacco Use Status: Former Tobacco user Tobacco use type: Cigarette e-Cigarette/Vaping Use: Never Used Second Hand Smoke Exposure: No service: No Current occupational status: employed Current occupation: rt handed Current occupational exposures/hazards: No Cognitive needs: No Hearing needs: No Vision needs: No Review of Systems Const All systems reviewed & are unremarkable except as noted in HPI and below Physical Exam Vital Signs: BMI result Body Mass Index 28.0 Const General: cooperative, healthy appearing and no acute distress Orientation/consciousness: patient oriented x3 HEENT Head: Yes normocephalic and Yes atraumatic Eyes EOM: EOMs intact bilaterally Resp Effort & Inspection: normal respiratory effort and able to speak in complete sentences Cardio Jugular venous distension: no JVD Skin General skin exam: turgor normal Rashes: no rashes Neuro General: patient oriented x3 Extrem Other: Evaluation of Right Upper Extremity: The patient is alert, oriented, and in no acute distress Neuro: Median, Ulnar, Radial nerves motor and sensory intact and sensation is normal to the tips of all digits Vascular: Cap refill brisk ROM: He can make a fist and extend all his digits No locking or catching Skin: No lacerations or abrasions. General: No Ecchymosis. No Erythema or evidence of infection. There is a small incision noted on the dorsal aspect of the right hand over the 2nd webspace, no erythema, ecchymosis, drainage, or evidence of infection. Psych Appearance: grossly normal Affect: normal affect Attitude: cooperative Assessment & Plan Assessment & Plan (1) Mass of right hand: Code(s): R22.31 - Localized swelling, mass and lump, right upper limb Category: Medical Plan 1. Status post mass excision of right hand DOS 05/02/2025 Pathology report reveals small cystic mass, no evidence of malignancy Patient appears to be recovering well postoperatively Patient is educated about the typical recovery course Steri-Strips applied, sutures removed without issue Patient is educated that I have no concerns for any ongoing infection at this time Patient is relieved to hear this No acute follow-up as indicated Patient is amenable to this plan Follow-up as needed Coding Level of Care Code Global (23518) Diagnoses Mass of right hand R22.31
[2025-05-16 14:23] VITALS: BMI 28.0
--- OUTSIDE RECORDS SUMMARY | 2025-05-16 14:24 | XMS_ITS | Clinical Summary ---
Author Organization [facility] Address [address] [facility] [address] [place] [address] Phone Care Team Providers Care Assistant Manager Airside Operations Name Role Phone Zara Lucero MD Primary Care Provider [phone] Allergies No known active allergies Medications amLODIPine [...] Office Visit [facility] [address] [facility] [address] [place] [address] Maria Luisa Pandya ARNP [address] [facility] [address] [place] [address] Health Maintenance Due Date Last Done Comments Hepatitis B Vaccine (1 of 3 - 19+ 3-dose series) 09/28 Pneumococcal Vaccine: Peds ( 0 to 5 Years) and At-Risk Patients (6 to 49 Years) (2 of 2 - PCV) 12/16/2019 12/16/2018 Influenza Vaccine (#1) 2025 Insurance [facility] Care Teams Assistant Manager Airside Operations Relationship Specialty Start Date End Date Zara Lucero MD [address] [place], [place] PCP - General Internal Medicine 11/27/23
--- OUTSIDE RECORDS SUMMARY | 2025-05-16 14:24 | XMS_ITS | Clinical Summary ---
Author Organization [facility] Address [address] [place] [address] Care Team Providers Care Ice Cream Machine Operator Name Role Phone Unavailable Primary Care Provider [...] 2001 COVID-19 Vaccine (2023-2 5 season) 2024 Depression Screening 10/20/2024 Influenza Vaccine (#1) 2025 HIB Vaccines Aged Out No longer [...] and At-Risk Patients (6 to 49 Years) Aged Out No longer eligible b ased on patient's age to complete this topic RSV Immunization Patients Un [place] 20 months Aged Out No longer eligible b ased on patient's age to complete this topic Varicella Vaccines Aged Out No longer eligible based on patient's age to complete this topic
== END 2025-05-16 14:49 | disposition home or self-care (01) ==
LOC: HO.HOS 13:44
PROVIDERS: PCP Internal Medicine
DX: R22.31 Localized swelling, mass and lump, right upper limb (principal)
CPT/HCPCS: 99024